=== PATIENT | male | born 1950 | race Caucasian/White ===

== ENCOUNTER 2020-05-12 14:50 | Emergency (ER) | payer MEDICARE, OTHER ==
[~2020-05-12] VITALS: Ht 167.6 cm; Wt 63.5 kg
--- NOTE | 2020-05-12 15:02 | NUR ---
BIB SON C/O BILATERAL LOWER RIB PAIN FOR 4 DAYS, TO ER BED 10, HOOKED TO MONITOR, CHANGED TO HOSP GOWN, WARM BLANKET PROVIDED. DR HAQUE AT BEDSIDE
--- NOTE | 2020-05-12 15:18 | NUR ---
[employer] ARTIST AT BEDSIDE FOR XRAY
[2020-05-12] MEDS ORDERED: KETOROLAC TROMETHAMINE INJ 60 MG/2 ML VIAL IM ONE (16:00)
[2020-05-12] MEDS ORDERED: OXYC-133 PO (16:05)
[2020-05-12] MEDS ORDERED: TRAM50TA2 PO (16:06)
[2020-05-12] MEDS ORDERED: KETOROLAC TROMETHAMINE INJ 30 MG/ML VIAL ONE (16:25)
--- NOTE | 2020-05-12 16:39 | NUR ---
Patient discharged to home in stable condition. Written and verbal after care instructions given. Patient verbalizes understanding of instruction.
[2020-05-12 16:44] VITALS: BP 149/89
== END 2020-05-12 16:45 | disposition home or self-care (01) ==
LOC: ER 14:55
DX: M54.10 Radiculopathy, site unspecified (principal); I10 Essential (primary) hypertension; Z98.890 Other specified postprocedural states; Z79.899 Other long term (current) drug therapy
CPT/HCPCS: 71111; 96372; 99283; J1885